=== PATIENT | female | born 1990 | race Caucasian/White ===

== ENCOUNTER 2018-04-14 20:30 | Inpatient (IN) ==
[2018-04-14] MEDS ORDERED: OXYTOCIN 10 UNIT/1 ML IM PRN (21:05)
[2018-04-14] MEDS ORDERED: fentaNYL Inj 100 MCG/2 ML VIAL IV PRN (21:05)
[2018-04-14] MEDS ORDERED: MISOPROSTOL 200 MCG TABLET RECTAL PRN (21:05)
[2018-04-14] MEDS ORDERED: Carboprost Inj 250 MCG/ML AMP IM PRN (21:05)
[2018-04-14] MEDS ORDERED: LIDOCAINE HCL 2 % 10 ML JELLY URO-JECT TOPICAL PRN (21:05)
[2018-04-14] MEDS ORDERED: FAMOTIDINE 20 MG/2 ML VIAL IVP PRN ×2 (21:05)
[2018-04-14] MEDS ORDERED: diphenhydrAMINE 50 MG/1 ML VIAL IVP PRN (21:05)
[2018-04-14] MEDS ORDERED: BUTORPHANOL TARTRATE 2 MG/1 ML VIAL IVP PRN (21:05)
[2018-04-14] MEDS ORDERED: CITRIC ACID/SODIUM CITRATE 30 ML CUP PO PRN (21:05)
[2018-04-14] MEDS ORDERED: CALCIUM CARBONATE 500 MG (TUMS) CHEWABLE TABLET PO PRN (21:05)
[2018-04-14] MEDS ORDERED: ONDANSETRON 4 MG/2 ML VIAL IVP PRN (21:05)
[2018-04-14] MEDS ORDERED: METHYLERGONOVINE MALEATE 0.2 MG/1 ML VIAL IM PRN (21:05)
[2018-04-14] MEDS ORDERED: Metoclopramide Inj 10 MG/2 ML VIAL IV PRN (21:05)
[2018-04-14] MEDS ORDERED: LIDOCAINE W/ SODIUM BICARB 0.5 ML SYR SUBD PRN (21:05)
[2018-04-14] MEDS ORDERED: TERBUTALINE SULFATE 1 MG/1 ML SDV SUBCUT PRN (21:05)
[2018-04-14] MEDS ORDERED: Nalbuphine Inj 20 MG/ML Ampule IVP PRN (21:05)
[2018-04-14] MEDS ORDERED: ePHEDrine Inj 50 MG/ML AMP IVP PRN (21:05)
[2018-04-14] MEDS ORDERED: CefOXitin Inj 2 GM in Sodium Chloride 0.9% 100 ML IV PRN (21:05)
[2018-04-14] MEDS ORDERED: Phenylephrine Inj 50 MCG in Sodium Chloride 0.9% vial 0.5 ML IVP PRN (21:05)
[2018-04-14] MEDS ORDERED: Lidocaine 1% 10 MG/ML - 20 ML VIAL SUBCUT PRN (21:05)
[2018-04-14] MEDS ORDERED: Zolpidem Tab 5 MG TAB PO PRN (21:05)
[2018-04-14] MEDS ORDERED: Naloxone Inj 0.01 MG in Sodium Chloride 0.9% vial 1 ML IVP PRN (21:05)
[2018-04-14] MEDS ORDERED: NALOXONE 0.4 MG/1 ML VIAL IVP PRN (21:05)
[2018-04-14] MEDS ORDERED: Oxytocin 20 Units + LR 20 UNIT/1,000 ML BAG IV SCH (21:15)
[2018-04-14] MEDS: Misoprostol Tab 100 MCG TAB VAGINAL PRN (21:35)
[2018-04-14 21:41] LABS: Hematocrit [HCT] 34.8 % (37.0-47.0); Hemoglobin [HGB] 11.3 g/dL (12.0-16.0); MEAN CORPUSCULAR HEMOGLOBIN 28.3 PG (27-31); MEAN CORPUSCULAR HGB CONC 32.5 g/dL (33-37); MEAN CORPUSCULAR VOLUME 87.2 FL (81-99); MEAN PLATELET VOLUME 11.1 FL (7.4-12.2); RED BLOOD COUNT 3.99 10^6/uL (4.20-5.40)
[2018-04-15] MEDS: Misoprostol Tab 100 MCG TAB VAGINAL PRN (01:52)
[2018-04-15] MEDS ORDERED: Oxytocin 20 Units + LR 20 UNIT/1,000 ML BAG IV SCH ×2 (02:00→14:43)
[2018-04-15] MEDS: Lactated Ringers-OB Dept 1,000 ML PRIMARY IV SCH ×3 (02:15→13:00)
--- NOTE | 2018-04-15 09:36 | OB.PROGRES ---
Date of Service: 04/15/18 Time of Service: 09:30 Interval History: Pt is a 28 yo at 39 3/7 weeks with gestational diabetes this , who presents for induction of labor at term. Her blood sugars were well controlled until last week, when she noted that her am sugars were higher than goal. She was started on metformin ER 500 mg po qpm. She has had no hypoglycemia. Last night upon admission, she received 1 dose of cytotec, and then low dose pitocin. Her cervix was 5/70/-1 this morning. She is starting to be more uncomfortable with her contractions. Objective - Cervical Exam Cervical Exam: 6/80/0/cephalic Arena: couplets, brea every 2-3 minutes Heart Rate: 150s, moderate variability, no decels noted. Heart Rate Interpretation Category: Category I - Labs CBC and BMP: 04/14/18 21:45 - Vital Signs Last Taken Vital Signs: Vital Signs - Last Taken Temperature 98.9 F 04/15/18 07:45 Pulse Rate 96 04/15/18 08:00 Respiratory Rate 18 04/15/18 02:00 Blood Pressure 114/65 04/15/18 06:30 Pulse Ox 98 04/15/18 08:00 Assessment and Plan - Patient Problems (1) Gestational diabetes Current Visit: No Status: Acute Code(s): O24.419 - Gestational diabetes mellitus in , unspecified control Qualifiers: Gestational diabetes mellitus control: oral hypoglycemic-controlled Trimester: third trimester Qualified Code(s): O24.415 - Gestational diabetes mellitus in , controlled by oral hypoglycemic drugs - Assessment / Plan Additional Assessment/Plan Details: -currently getting epidural for pain control. -GBS negative. -oral-hyperglycemic controlled gestational diabetes. DARYN normal, antepartum testing thus far has been reassuring. Baby will need blood sugar protocol after delivery. -AROM completed with return of clear fluid -anticipate normal vaginal delivery.
[2018-04-15] MEDS ORDERED: Fent/Bupiv 2mcg/0.0625% Epid 250 ML ONE (09:39)
[2018-04-15] MEDS ORDERED: BUTORPHANOL TARTRATE 2 MG/1 ML VIAL IVP PRN (10:04)
[2018-04-15] MEDS ORDERED: ePHEDrine Inj 50 MG/ML AMP IVP PRN (10:04)
[2018-04-15] MEDS ORDERED: Phenylephrine Inj 50 MCG in Sodium Chloride 0.9% vial 0.5 ML IVP PRN (10:04)
[2018-04-15] MEDS ORDERED: diphenhydrAMINE 50 MG/1 ML VIAL IVP PRN ×2 (10:04→14:43)
[2018-04-15] MEDS ORDERED: Nalbuphine Inj 20 MG/ML Ampule IVP PRN ×2 (10:04→14:43)
[2018-04-15] MEDS ORDERED: Naloxone Inj 0.01 MG in Sodium Chloride 0.9% vial 1 ML IVP PRN (10:04)
[2018-04-15] MEDS ORDERED: NALOXONE 0.4 MG/1 ML VIAL IVP PRN (10:04)
[2018-04-15] MEDS ORDERED: fentaNYL 2 MCG/BUPIVACAINE 0.0625%/NS 0.9% 250 ML BAG EPIDURAL ONE (10:05)
--- NOTE | 2018-04-15 10:06 | CRNA.PROGR ---
Anesthesia Time - Procedure/Recovery Time Start Date: 04/15/18 End Date: 04/15/18 Anesthesia : Time In: 09:30 Anesthesia : Time Out: 14:30 Anesthesia : Total Time: 300 - Total Anesthesia Time Total Anesthesia Time (minutes): 300 - Other Weight: 72.756 kg Height: 5 ft 2 in Body Mass Index (BMI): 29.3 Physical Status: P2 () Anesthesia Type: Epidural Obstetrics: Planned vaginal delivery w/ neuraxial labor anesthesia/analog
--- NOTE | 2018-04-15 10:14 | CRNA.PROCE ---
Central Neuraxis Block Placemt - - Type of Block: Epidural Reason for Block: Analgesia Moniters Used During Block: SPO2, NIBP Positioning: Sitting Skin Prep Used: ChloroPrep (Twice) Draped: Yes Skin Infiltration - Enter Amount Used in Comment Field: 1% Xylocaine (mL): Yes (1.5 ml) Introducer User: 18 Gauge Fablic Spinal Needle Used: 18 Hustead 80 mm Local Anesthetic - Enter Amount Used in Comment Field: 1.5 % Xylocaine with Epinephrine 1:200,000 (mL): Yes (4 ml as test dose) Number of Centimeters Catheter Threaded: 3.75 Bioclusive Dressing Applied: Yes (skin prep under all adhesive) - - Additional Details: Reported to be 6 cm or greater in dilation. Membranes ruptured by MD. monitoring reported to be reassuring. Platelet numbers [id number]. Test dose negative for IV or Subarachnoid. Started infusion with a 10 ml bolus of 0.0625 Bupivicaine and 2 mcg Fentanyl. See orders. Excellant analgesia till delivery. Significant perineal/ vaginal/rectal tear had to be repaired post delivery. Anesthesia Time - Other Weight: 72.756 kg Height: 5 ft 2 in Body Mass Index (BMI): 29.3
--- NOTE | 2018-04-15 14:01 | OB.DEL.SUM ---
Delivery Note Delivery Summary: Pt is a 28 yo G2 now P2 at 39 3/7 weeks by u/s who presented to labor and delivery last noc for cervical ripening secondary to gestational diabetes. Her antepartum testing has all been normal. Pt received 1 dose of cytotec last noc and then low dose pitocin augmentation early this morning. At approximately 0900 this morning, she underwent amniotomy with return of clear amniotic fluid. She was 6/80/0 at that point. She continued to labor through the morning on 3 mU of pitocin and was c/c/+2 at 1250. She began pushing around 1310 and delivered a viable female infant, over an intact perineum, at 1318. Baby delivered in the ADRIAN presentation, nuchal cord x 1. No shoulder dystocia. After delivery, baby's nose and mouth were suctioned with the bulb suction. She was dried and stimulated on mom's chest for 45 seconds, after which the cord was doubly clamped by myself and cut by the father of the baby. Cord blood and cord gases were obtained. The placenta delivered spontaneously and intact, with a 3 vessel cord, at 1332. 20 mU of pitocin were infused. The vagina and perineum were examined. A first degree left labial laceration was noted and repaired in the normal fashion with 3-0 vicryl rapide. There was a more superficial laceration involving the right labia majora, which was likewise repaired. A right periurethral laceration was noted and was hemostatic, and thus not repaired. Lap and needle counts were correct. Apgars were 9 at 1 minute and 10 at 5 minutes. Baby weighed 8#1oz. Both mom and baby are in stable condition at the current time. EBL 200 cc. - Patient Problems (1) Gestational diabetes Current Visit: No Status: Acute Code(s): O24.419 - Gestational diabetes mellitus in , unspecified control Qualifiers: Gestational diabetes mellitus control: oral hypoglycemic-controlled Trimester: third trimester Qualified Code(s): O24.415 - Gestational diabetes mellitus in , controlled by oral hypoglycemic drugs
[2018-04-15] MEDS ORDERED: GLYCERIN/WITCH HAZEL 1 BOX TOPICAL PRN (14:43)
[2018-04-15] MEDS ORDERED: MMR VACCINE 12500 UNIT/0.5 ML SUBCUT ONE (14:43)
[2018-04-15] MEDS ORDERED: Ondansetron ODT Tab 4 MG TAB PO PRN (14:43)
[2018-04-15] MEDS ORDERED: CALCIUM CARBONATE 500 MG (TUMS) CHEWABLE TABLET PO PRN (14:43)
[2018-04-15] MEDS ORDERED: BENZOCAINE/MENTHOL SPRAY 56 GM BOTTLE TOPICAL PRN (14:43)
[2018-04-15] MEDS ORDERED: ONDANSETRON 4 MG/2 ML VIAL IVP PRN (14:43)
[2018-04-15] MEDS ORDERED: diphenhydrAMINE 25 MG CAPSULE PO PRN (14:43)
[2018-04-15] MEDS ORDERED: LIDOCAINE HCL 2 % 10 ML JELLY URO-JECT TOPICAL PRN (14:43)
[2018-04-15] MEDS ORDERED: DIPH,PERTUSS,TET(ADACEL) VAC/PF 0.5 ML (Tdap) IM ONE (14:43)
[2018-04-15] MEDS ORDERED: LANOLIN HPA 40 GM TUBE TOPICAL PRN (14:43)
[2018-04-15] MEDS ORDERED: ACETAMINOPHEN 325 MG TABLET PO PRN (14:43)
[2018-04-15] MEDS ORDERED: HYDROcodone-APAP 5 MG -325 MG TABLET PO PRN (14:43)
[2018-04-15] MEDS: IBUPROFEN 800 MG TABLET PO PRN (17:41)
[2018-04-15] MEDS: DOCUSATE 100 MG CAPSULE PO SCH (20:41)
[2018-04-16 04:48] LABS: Hematocrit [HCT] 29.5 % (37.0-47.0); Hemoglobin [HGB] 9.4 g/dL (12.0-16.0); MEAN CORPUSCULAR HEMOGLOBIN 28.1 PG (27-31); MEAN CORPUSCULAR HGB CONC 31.9 g/dL (33-37); MEAN CORPUSCULAR VOLUME 88.1 FL (81-99); MEAN PLATELET VOLUME 10.8 FL (7.4-12.2); RED BLOOD COUNT 3.35 10^6/uL (4.20-5.40)
[2018-04-16 04:58] VITALS: RESP 18
[2018-04-16] MEDS ORDERED: Prenatal Multivitamin Tab 1 TAB TAB PO SCH (09:00)
[2018-04-16] MEDS ORDERED: RHO(D) IMMUNE GLOBULIN 1500 UNIT(300 mcg)SYRIN IM PRN (09:00)
[2018-04-16] MEDS ORDERED: MMR VACCINE 12500 UNIT/0.5 ML SUBCUT ONE (09:00)
[2018-04-16 10:05] VITALS: BP 108/54; TEMP 98; O2SAT 99
[2018-04-16] MEDS: DOCUSATE 100 MG CAPSULE PO SCH (10:29)
[2018-04-16] MEDS: IBUPROFEN 800 MG TABLET PO PRN (12:16)
--- NOTE | 2018-04-16 16:38 | OB.PROGRES ---
Subjective Post Day: 1 Pain Management: PO Fagan Catheter: No Flatus: Yes Lochia Color: Rubra/Red Small 10-25 ml Diet: Regular Feeding Method: Formula Feeding Ambulating: Yes Objective - General General Appearance: POSITIVE: No Acute Distress, Cooperative - Cardiovacular Cardiovascular Exam: POSITIVE: RRR, No Murmur Edema: +1 Pedal Edema Extremities: Negative Mary Kay's - Bilaterally - Respiratory Respiratory Exam: POSITIVE: Clear to Auscultation - Bilaterally, Breathing Non Labored - Abdomen Bowel Sounds: Present Assesstment / Plan (1) Gestational diabetes Current Visit: No Status: Acute Qualifiers: Gestational diabetes mellitus control: oral hypoglycemic-controlled Trimester: third trimester Qualified Code(s): O24.415 - Gestational diabetes mellitus in , controlled by oral hypoglycemic drugs (2) Status post vaginal delivery Current Visit: Yes Status: Acute Assessment / Plan: -routine cares. -rubella nonimmune--needs MMR vaccine prior to d/c. -rh positive. -d/c home today per pt's request.
== END 2018-04-16 18:31 | disposition home or self-care (01) | DRG 807 ==
LOC: OBIP 20:30
PROVIDERS: ADMIT Family Medicine; ATTEND Family Medicine